=== PATIENT | female | born 1940 | race Caucasian/White ===

== ENCOUNTER 2017-04-10 13:56 | Outpatient (CLI) | payer MEDICARE | END 2017-04-10 13:57 | disposition home or self-care (01) | LOC: BICMAMMO 13:56 | PROVIDERS: ATTEND Internal Medicine Medical Oncology | DX: Z08 Encounter for follow-up examination after completed treatment for malignant neoplasm (principal); R92.1 Mammographic calcification found on diagnostic imaging of breast; Z85.3 Personal history of malignant neoplasm of breast | CPT/HCPCS: 77066; G0279; 77063; 77067 ==

== ENCOUNTER 2017-12-21 11:40 | Inpatient (IN) | payer MEDICARE ==
--- NOTE | 2017-12-21 13:18 | RAD ---
LEFT KNEE 4 VIEWS: History Sipped. Sever pain. COMPARISON: None. FINDINGS: There is a mildly comminuted transversely oriented fracture of the mid patella. There is distraction anteriorly approximately 1.4 cm. Large joint effusion. IMPRESSION: Mildly comminuted mid patellar fracture with 1.4 cm anterior distraction. POS: [facility]
[2017-12-21] MEDS ORDERED: Adacel (T-DAP) 0.5 ML VIAL ONE (14:02)
[2017-12-21] MEDS ORDERED: CEFAZOLIN 1 GM VIAL ONE (14:02)
[2017-12-21] MEDS ORDERED: PROPOFOL 200 MG/20 ML VIAL ONE (14:59)
[2017-12-21] MEDS ORDERED: Ondansetron PF 4 MG/2 ML Vial ONE (14:59)
[2017-12-21] MEDS ORDERED: Dexamethasone 20 MG/5 ML VIAL ONE (14:59)
[2017-12-21] MEDS ORDERED: Lidocaine 1% PF 5 ML VIAL ONE (14:59)
[2017-12-21] MEDS ORDERED: PHENYLEPHRINE-NS 100 MCG/ML 10 ML SYRINGE ONE (14:59)
[2017-12-21] MEDS ORDERED: CEFAZOLIN/Water 2 GM/20 ML SYRINGE SLOW IVP SCH (15:30)
--- NOTE | 2017-12-21 16:56 | CON ---
DATE OF CONSULTATION: 12/21/2017 CHIEF COMPLAINT: Left knee pain. HOSPITAL COURSE: Ms. Cleveland is a 77-year-old female who fell today. She lost her balance. She trip ped and landed hard on her left knee. She had a laceration of the anterior knee. She was unable to ambulate after this. She felt a crunch or pop in the knee. She knew she has broken a bone. The pat ient was taken to the emergency department where x-rays were obtained. They demonstrated a transvers e patellar fracture. Orthopedics was consulted. PAST MEDICAL HISTORY: The patient reports hypertension, otherwise she denies active medical problems . The patient has chronic kidney disease. PAST SURGICAL HISTORY: No recent surgeries. SOCIAL HISTORY: The patient denies tobacco, alcohol, or drug use. Her friend is at the bedside with her. REVIEW OF SYSTEMS: Positive for left knee pain, otherwise negative 10-point review of systems. SOCIAL HISTORY: The patient denies alcohol, tobacco or drug use. IMAGING DATA: X-rays of the left knee demonstrate a transverse patellar fracture with mild comminuti on and displacement. PHYSICAL EXAMINATION: VITAL SIGNS: Stable. The patient is afebrile, normotensive, 98% on room air. GENERAL: She is alert, sitting upright in no apparent distress. RESPIRATORY: Breathing comfortably. ABDOMEN: Soft, nontender, nondistended. CARDIOVASCULAR: Pulses palpable and regular. MUSCULOSKELETAL: The patient's left lower extremity has a small 1 cm laceration directly over the pa tella. There is some draining hematoma consistent with open fracture. There is a second small lacer ation more distal to the patella. She is unable to do a straight leg raise. She has pain with motio n and swelling of her knee. IMPRESSION: Left open patellar fracture in an elderly female. PLAN: At this point, the patient will need to go for surgery for open reduction and internal fixatio n of her patella. She will need irrigation and debridement of her open fracture. She will need intr avenous antibiotic treatment. She has already received Ancef. She will have pain control, DVT proph ylaxis and will need physical therapy to mobilize. We will keep her in the hospital overnight. All questions have been answered.
[2017-12-21] MEDS ORDERED: HYDROmorphone 2 MG/ML VIAL ONE (17:17)
[2017-12-21] MEDS ORDERED: Bupivacaine HCl 0.5%/Epinephrine 1:200,000/PF 30 ml Vial ONE (17:28)
[2017-12-21] MEDS ORDERED: Milk Of Magnesia 30 ML UDCUP PO PRN (18:12)
[2017-12-21] MEDS ORDERED: HYDROcodone/Acetaminophen 5/325 mg Tablet PO PRN (18:12)
[2017-12-21] MEDS ORDERED: Ondansetron PF 4 MG/2 ML Vial IV PRN (18:12)
[2017-12-21] MEDS ORDERED: Acetaminophen 325 MG TAB PO PRN (18:12)
[2017-12-21] MEDS ORDERED: traMADol HCl 50 MG TAB PO PRN (18:12)
[2017-12-21] MEDS ORDERED: Fentanyl 100 MCG/2 ML VIAL SLOW IVP PRN (18:12)
[2017-12-21] MEDS ORDERED: Promethazine HCl 25 MG/ML VIAL SLOW IVP PRN (18:13)
[2017-12-21] MEDS ORDERED: Promethazine HCl 25 MG/ML VIAL IM PRN (18:13)
[2017-12-21] MEDS ORDERED: Ondansetron HCl/PF 4 MG/2 ML Vial IVP PRN (18:13)
[2017-12-21] MEDS ORDERED: Communication Order-Pharmacy FS SCH (18:15)
[2017-12-21] MEDS ORDERED: Fentanyl 100 MCG/2 ML VIAL ONE ×5 (18:16→19:24)
--- NOTE | 2017-12-21 18:27 | RAD ---
LEFT KNEE TWO VIEWS: INDICATIONS: ORIF of the left patella. COMPARISON: Radiograph dated 12/21/2017. FINDINGS: There has been interval placement of a cerclage band, fixating the patient's left patella fracture. There is improved fracture alignment. Fracture reduction is near anatomic. IMPRESSION: Open reduction and internal fixation left patella. POS: [facility]
[2017-12-21] MEDS: CEFAZOLIN 2 GM/50 ML BAG IVPB SCH (21:20)
[2017-12-21] MEDS: Ketorolac Tromethamine 30 MG/ML VIAL IVP SCH (23:30)
--- NOTE | 2017-12-21 23:56 | OP ---
DATE OF OPERATION: 12/21/2017 PROCEDURES: 1. Open reduction and internal fixation of left patellar fracture. 2. Irrigation and debridement of open patellar fracture. PREOPERATIVE DIAGNOSIS: Left displaced patellar fracture, open. POSTOPERATIVE DIAGNOSIS: Left displaced patellar fracture, open. SURGEON: Devante Alvarenga MD ANESTHESIA: General plus local. IMPLANTS: Two 4.0 cannulated screws and cerclage wire was utilized. COMPLICATIONS: None. ESTIMATED BLOOD LOSS: 100 mL INDICATIONS: Ms. Cleveland is a 77-year-old female. She fell today. She fractured her left patella. She was indicated for open reduction and internal fixation as well as irrigation and debridement of t he open fracture. Risks have been reviewed in detail. She has elected to proceed with the operation . DESCRIPTION OF OPERATION: Ms. Cleveland was identified in the preoperative holding area. Her correct e xtremity was marked. She was carried to the operating room. She was positioned supine. General ane sthesia was induced. A multidisciplinary timeout was performed. The left lower extremity was preppe d and draped in sterile fashion. At this point, we began the procedure by extending the patient's traumatic anterior wounds. We worke d more deeply down to the subcutaneous tissues and exposed the underlying fracture. The patient had a transverse patellar fracture. We thoroughly irrigated with copious lavage. We performed an excisi onal debridement with a knife as well of the deep tissues. Once we had a thorough irrigation of the knee joint and the fracture, we proceeded with fixation. We reduced the fracture, holding it with a reduction clamp. We then passed two guidewires through the patella from distal to proximal. We over drilled the guidewires. We then placed two 4.0 cannulated screws across the fracture site. These we re well fixed. We then placed a cerclage wire through the screws and brought this over the top of th e patella in a [id number] pattern. This provided a tension band. We took x-ray images confirmi ng hardware placement and that there was no prominence. We accepted this. We thoroughly irrigated w ith copious lavage. We then closed with a #2 Vicryl suture and the retinaculum followed by 2-0 Vicry l suture and byron for the skin. A sterile dressing was applied and a knee immobilizer. The patie nt was taken to the recovery room.
[2017-12-22 05:14] VITALS: BMI 26.4
[2017-12-22] MEDS: CEFAZOLIN 2 GM/50 ML BAG IVPB SCH (05:42)
[2017-12-22] MEDS: Ketorolac Tromethamine 30 MG/ML VIAL IVP SCH ×2 (05:42→11:52)
[2017-12-22] MEDS ORDERED: Enoxaparin Sodium 40 MG/0.4 ML SYRINGE SC SCH (09:00)
[2017-12-22 16:22] VITALS: BP 122/59; TEMP 97.4
[2017-12-23] MEDS ORDERED: Prevnar 13-Val Conj/PF 0.5 ML SYRINGE IM ONE (09:00)
--- NOTE | 2017-12-23 12:28 | DIS ---
DATE OF ADMISSION: 12/21/2017 DATE OF DISCHARGE: 12/22/2017 PREOPERATIVE DIAGNOSIS: Patellar fracture. POSTOPERATIVE DIAGNOSIS: Patellar fracture. PROCEDURE: The patient underwent a patellar repair. HOSPITAL COURSE: Hospital stay was unremarkable. The patient was able to discharge on postop day #1 . DISCHARGE CONDITION: Good/stable. DISPOSITION: Home with family. FOLLOWUP: Followup would be in 10-14 days, sooner if there are problems or concerns. DISCHARGE MEDICATIONS: Given with usage instructions. Osei Roy PA-C, dictating for Devante Alvarenga M.D.
== END 2017-12-22 17:25 | disposition home or self-care (01) | DRG 517 ==
LOC: ERS 11:40 → SDC 16:46 → SURG B 19:27
PROVIDERS: ADMIT Orthopaedic Surgery; ATTEND Orthopaedic Surgery
PROC: 0QSF04Z Reposition Left Patella with Internal Fixation Device, Open Approach (ICD-10-PCS; principal; 2017-12-21)
DX: S82.032B Displaced transverse fracture of left patella, initial encounter for open fracture type I or II (principal); W01.0XXA Fall on same level from slipping, tripping and stumbling without subsequent striking against object, initial encounter; I10 Essential (primary) hypertension
CPT/HCPCS: 76001; 76700; 76770; 90471; 90715; 96365; C1713; C1769; G0390; G8978-GP-CK; G8979-GP-CI; J0131; J0670; J0690; J1100; J1170; J1650; J1885; J2001; J2405; J2704; J3010

== ENCOUNTER 2018-04-12 14:06 | Outpatient (CLI) | payer MEDICARE ==
--- NOTE | 2018-04-12 16:43 | BD ---
DEXA BONE DENSITY STUDY: History: Post-menopausal. Exam: DEXA Bone Density Lumbar Spine: BMD (g/cm2) L1 1.409 T-Score: 3.8 L2 1.420 T-Score: 3.6 L3 1.452 T-Score: 3.3 L4 1.371 T-Score: 2.8 L1-L4 1.411 T-Score: 3.3 Femoral Neck: 0.740 T-Score: -1.0 Total Femur: 0.906 T-Score: -0.3 Impression: Normal bone mineral density of the lumbar spine, left femoral neck. POS: [facility]
== END 2018-04-12 14:07 | disposition home or self-care (01) ==
LOC: BICMAMMO 14:06
PROVIDERS: ATTEND Obstetrics & Gynecology
DX: C50.612 Malignant neoplasm of axillary tail of left female breast (principal); M89.9 Disorder of bone, unspecified; R92.1 Mammographic calcification found on diagnostic imaging of breast; Z85.3 Personal history of malignant neoplasm of breast
CPT/HCPCS: 77066; 77080; G0279

== ENCOUNTER 2018-12-31 16:04 | Day surgery (SDC) | payer MEDICARE ==
[~2018-12-31 16:04] MED LIST: Dexamethasone 20 MG/5 ML VIAL ONE; Lidocaine 1% PF 5 ML VIAL ONE; Ondansetron PF 4 MG/2 ML Vial ONE; PHENYLEPHRINE-NS 100 MCG/ML 10 ML SYRINGE ONE; PROPOFOL 200 MG/20 ML VIAL ONE; ePHEDrine/0.9% NaCl/PF SYRINGE 50 mg/10 ml ONE
[2018-12-31] MEDS ORDERED: Cyclopentolate 1% Opth Drop 2 ML BOT ONE (16:38)
[2018-12-31] MEDS ORDERED: Phenylephrine 2.5% Ophth Soln 5 ML BOT ONE (16:38)
[2018-12-31] MEDS ORDERED: Fluorouracil 100 MG, Enoxaparin Sodium 25 MG, EPINEPHrine 0.3 MG in Ophthalmic Irrigati... IRR SCH (16:43)
[2018-12-31] MEDS ORDERED: Fentanyl 100 MCG/2 ML VIAL ONE (17:49)
--- NOTE | 2019-01-01 00:59 | OP ---
DATE OF PROCEDURE: 12/31/2018 PREOPERATIVE DIAGNOSIS: Retinal detachment, left eye. POSTOPERATIVE DIAGNOSIS: Retinal detachment, left eye. PROCEDURES PERFORMED: Pars plana vitrectomy, retinal detachment repair, left eye. ANESTHESIA: General endotracheal anesthesia. COMPLICATIONS: None. DESCRIPTION OF PROCEDURE: The patient was identified in the preoperative holding area. Appropriate informed consent for the planned surgical procedure on the left eye had been obtained. The patient was transported to the operative suite. Appropriate cardiopulmonary monitoring was established. Local anesthesia was obtained using retrobulbar modified Van Lint lid block using 50:50 mixture of 4% lidocaine, 0.75% bupivacaine. The patient was prepped and draped in usual sterile manner for ophthalmic surgery, left eye. Lid speculum placed in the left eye. A 25-gauge trocar was placed in the conjunctiva and sclera superotemporally, inferotemporally, and supranasally. Infusion line was placed inferotemporally. Light pipe and vitreous cutter were inserted into the eye. Core vitrectomy was performed. Posterior drained retinotomy was created along the supratemporal arcade. Complete air-fluid exchange was performed. Supratemporal laser was placed around the break at the 2 o'clock position; 28% sulfur hexafluoride gas was infused into the eye. Superior sclerotomy suture closed. Retrobulbar Kenalog and subconjunctival Ancef were placed. Antibiotic ointment placed. The eye was patched and shielded. The patient was taken to postoperative recovery unit in good condition having suffered no immediate perioperative complications. The patient was instructed to keep patch and shield on, position left side down. Followup appointment with Dr. Reyes. Job ID: [id number]
== END 2018-12-31 20:35 | disposition home or self-care (01) ==
LOC: SDC 16:04
PROVIDERS: ATTEND Ophthalmology Retina Specialist
PROC: 08T53ZZ Resection of Left Vitreous, Percutaneous Approach (ICD-10-PCS; principal; 2018-12-31)
DX: H33.002 Unspecified retinal detachment with retinal break, left eye (principal)
CPT/HCPCS: 67025; J0171; J1100; J1650; J2001; J2405; J2704; J3010; J9190

== ENCOUNTER 2019-05-04 13:41 | Outpatient (CLI) | payer MEDICARE, OTHER ==
--- NOTE | 2019-05-04 14:29 | MMO ---
Bilateral MAMMO Bilat Diag [facility]. CLINICAL HISTORY: Patient is 78 years old and is seen for diagnostic exam. The patient has no family history of breast cancer. 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 The patient has a history of left Lumpectomy in 2017 - malignant and left Excisional Biopsy in 2012 - benign. VIEWS: The views performed were: bilateral craniocaudal with tomosynthesis; bilateral mediolateral oblique with tomosynthesis; and bilateral mediolateral with tomosynthesis. FILMS COMPARED: The present examination has been compared to prior imaging studies performed at [facility] on 04/07/2016, 04/10/2016, 04/10/2017 and 04/12/2018. This study has been interpreted with the assistance of computer-aided detection. MAMMOGRAM FINDINGS: There are scattered fibroglandular densities. Benign calcifications are noted. There are no suspicious masses, suspicious calcifications, or new areas of architectural distortion. IMPRESSION: THERE IS NO MAMMOGRAPHIC EVIDENCE OF MALIGNANCY. A ROUTINE FOLLOW-UP MAMMOGRAM IN 1 YEAR IS RECOMMENDED. THE RESULTS OF THIS EXAM WERE SENT TO THE PATIENT. ACR BI-RADS Category 2 - Benign finding MAMMOGRAPHY NOTE: 1. A negative mammogram report should not delay a biopsy if a dominant of clinically suspicious mass is present. 2. Approximately 10% to 15% of breast cancers are not detected by mammography. 3. Adenosis and dense breasts may obscure an underlying neoplasm. Reported by: BILLY ALANIZ MD Electonically Signed: [id number]
== END 2019-05-04 13:42 | disposition home or self-care (01) ==
LOC: BICMAMMO 13:41
PROVIDERS: ATTEND Internal Medicine Medical Oncology
DX: C50.612 Malignant neoplasm of axillary tail of left female breast (principal)
CPT/HCPCS: 77066; G0279

== ENCOUNTER 2020-05-10 13:41 | Outpatient (CLI) | payer MEDICARE, OTHER | END 2020-05-10 13:42 | disposition home or self-care (01) | LOC: BICMAMMO 13:41 | PROVIDERS: ATTEND Internal Medicine Medical Oncology | DX: Z08 Encounter for follow-up examination after completed treatment for malignant neoplasm (principal); Z85.3 Personal history of malignant neoplasm of breast | CPT/HCPCS: 77066; G0279 ==

== ENCOUNTER 2022-02-05 12:17 | Outpatient (CLI) | payer MEDICARE, OTHER | END 2022-02-05 12:18 | disposition home or self-care (01) | LOC: BICCT 12:17 | PROVIDERS: ATTEND Internal Medicine Cardiovascular Disease | DX: I65.22 Occlusion and stenosis of left carotid artery (principal); E04.1 Nontoxic single thyroid nodule; M47.892 Other spondylosis, cervical region; M48.02 Spinal stenosis, cervical region | CPT/HCPCS: 70498; 82565 ==

== ENCOUNTER 2022-03-31 13:36 | Outpatient (CLI) | payer MEDICARE, OTHER ==
[2022-03-31 15:30] LABS: Hemoglobin 13.7 g/dL (12.0-15.5); Mean Corpuscular HGB CONC 33.9 g/dL (32.0-36.0); Mean Corpuscular Hemoglobin 34.1 pg (27.0-33.0); Mean Corpuscular Volume 100.5 fl (81.6-98.3); Mean Platelet Volume 9.8 fl (7.4-10.4); Platelet Count 209 10x3/uL (150-450); RBC Distribution Width 11.8 % (11.5-14.5); Red Blood Cell (RBC) Count 4.02 10x6/uL (3.90-5.03); White Blood Cell (WBC) Count 6.6 10x3/uL (3.5-10.5)
[2022-03-31 15:51] LABS: Anion Gap 18 mmol/L (10-20); BUN (Urea Nitrogen) 36 mg/dL (9.8-20.1); Calc. Creatinine Clearance 0 mL/min (70-130); Calcium 9.7 mg/dL (7.8-10.44); Carbon Dioxide 21 mmol/L (23-31); Chloride 102 mmol/L (98-107); Estimated GFR 44; Glucose 97 mg/dL (83-110); Sodium 137 mmol/L (136-145)
[2022-03-31 16:00] LABS: Potassium 4.3 mmol/L (3.5-5.1)
== END 2022-03-31 13:37 | disposition home or self-care (01) ==
LOC: LABBT 13:36
PROVIDERS: ATTEND Thoracic Surgery (Cardiothoracic Vascular Surgery)
DX: Z01.812 Encounter for preprocedural laboratory examination (principal); I65.22 Occlusion and stenosis of left carotid artery
CPT/HCPCS: 80048; 85027

== ENCOUNTER 2022-03-31 14:00 | Inpatient (IN) | payer MEDICARE, OTHER ==
[2022-04-01 08:57] VITALS: BMI 27.7
[2022-04-02] MEDS ORDERED: Bupivacaine HCl 0.5%/Epinephrine 1:200,000/PF 30 ml Vial ONE (06:17)
[2022-04-02] MEDS ORDERED: Heparin 5,000 UNITS/ML VIAL ONE (06:17)
[2022-04-02] MEDS ORDERED: Protamine Sulfate 50 MG/5 ML VIAL ONE (06:17)
[2022-04-02] MEDS ORDERED: Fentanyl 250 MCG/5 ML VIAL ONE (06:28)
[2022-04-02] MEDS ORDERED: niCARdipine 25 MG/10 ML VIAL ONE (06:29)
[2022-04-02] MEDS ORDERED: Phenylephrine 10 MG/ML VIAL ONE (06:29)
[2022-04-02] MEDS ORDERED: Sodium Chloride 0.9% 100 ML ONE (06:43)
[2022-04-02] MEDS ORDERED: CEFAZOLIN 2 GM VIAL ONE (06:43)
[2022-04-02] MEDS ORDERED: Lidocaine 1% MPF 2 ML VIAL ONE (06:45)
[2022-04-02] MEDS ORDERED: Lidocaine 1% PF 5 ML VIAL ONE (07:05)
[2022-04-02] MEDS ORDERED: PROPOFOL 200 MG/20 ML VIAL ONE (07:05)
[2022-04-02] MEDS ORDERED: Rocuronium Bromide 10 MG/ML (10ML VIAL) ONE (07:05)
[2022-04-02] MEDS ORDERED: NEOSTIGMINE 3 MG/3 ML SYR 3 MG/3 ML SYRINGE ONE (07:05)
[2022-04-02] MEDS ORDERED: Glycopyrrolate 0.2 MG/ML 5 ML SYRINGE ONE (07:05)
[2022-04-02] MEDS ORDERED: Dexamethasone 20 MG/5 ML VIAL ONE (07:05)
[2022-04-02] MEDS ORDERED: Ondansetron PF 4 MG/2 ML Vial ONE ×2 (07:05→08:35)
[2022-04-02 07:19] LABS: SARS-CoV-2 NAA Rapid Test Not Detected (NotDetected)
[2022-04-02] MEDS ORDERED: Promethazine HCl 25 MG/ML VIAL IM PRN ×2 (08:24→08:55)
[2022-04-02] MEDS ORDERED: Ondansetron HCl/PF 4 MG/2 ML Vial IVP PRN (08:24)
[2022-04-02] MEDS ORDERED: Fentanyl 100 MCG/2 ML VIAL ONE (08:35)
[2022-04-02] MEDS ORDERED: NOREPINEPHRINE 8 MG/250 ML-D5W 250 ML IVPB PRN (08:55)
[2022-04-02] MEDS ORDERED: niCARdipine 25 MG in Sodium Chloride 0.9% 250 ML 250 ML IVPB PRN (08:55)
[2022-04-02] MEDS ORDERED: traMADol HCl 50 MG TAB PO PRN ×2 (08:55)
[2022-04-02] MEDS ORDERED: Ondansetron PF 4 MG/2 ML Vial IVP PRN (08:55)
[2022-04-02] MEDS ORDERED: Ipratropium/Albuterol 3 ML NEB NEB PRN (08:55)
[2022-04-02] MEDS ORDERED: Non-Formulary Item 1 EACH (Tamoxifen Citrate [Tamoxifen Citrate] 20 MG Tablet) PO SCH (09:00)
[2022-04-02] MEDS: Acetaminophen 325 MG TAB PO PRN ×3 (11:17→23:37)
[2022-04-02] MEDS: Sodium Chloride 0.9% 1,000 ML IV SCH ×2 (11:18→20:09)
[2022-04-02] MEDS: Aspirin Chewable 81 MG TAB PO SCH (11:19)
[2022-04-02] MEDS: Levothyroxine Sodium 50 MCG TAB PO SCH (11:19)
[2022-04-02] MEDS: Ipratropium/Albuterol 3 ML NEB NEB SCH ×3 (14:20→23:07)
[2022-04-02] MEDS: CEFAZOLIN 2 GM in Sodium Chloride 0.9% 100 ML IVPB SCH ×2 (16:04→21:15)
[2022-04-02] MEDS ORDERED: Simvastatin 40 MG TAB PO SCH (21:00)
[2022-04-02] MEDS ORDERED: Atorvastatin Calcium 20 MG TAB PO SCH (21:00)
[2022-04-03] MEDS: CEFAZOLIN 2 GM in Sodium Chloride 0.9% 100 ML IVPB SCH (05:09)
[2022-04-03] MEDS: Sodium Chloride 0.9% 1,000 ML IV SCH (05:09)
[2022-04-03] MEDS: Aspirin Chewable 81 MG TAB PO SCH (08:32)
[2022-04-03] MEDS: Levothyroxine Sodium 50 MCG TAB PO SCH (08:35)
[2022-04-03 08:52] VITALS: TEMP 98.4
[2022-04-03] MEDS ORDERED: Tamoxifen 10 MG TAB PO SCH (09:00)
[2022-04-05] MEDS ORDERED: FLU VACC QS2022-23(65YR UP)/PF 240 MCG/0.7 ML SYRINGE IM ONE (15:45)
== END 2022-04-03 09:45 | disposition home or self-care (01) | DRG 39 ==
LOC: SURG A 04-02 05:52 → CCU 04-02 10:22 → EDSTATUS 04-02 14:00
PROVIDERS: ADMIT Thoracic Surgery (Cardiothoracic Vascular Surgery); ATTEND Thoracic Surgery (Cardiothoracic Vascular Surgery)
PROC: 03CJ0ZZ Extirpation of Matter from Left Common Carotid Artery, Open Approach (ICD-10-PCS; principal; 2022-04-02)
PROC: 03UJ0KZ Supplement Left Common Carotid Artery with Nonautologous Tissue Substitute, Open Approach (ICD-10-PCS; 2022-04-02)
DX: I65.22 Occlusion and stenosis of left carotid artery (principal); M19.90 Unspecified osteoarthritis, unspecified site; I10 Essential (primary) hypertension; M81.0 Age-related osteoporosis without current pathological fracture; Z20.822 Contact with and (suspected) exposure to COVID-19; Z90.49 Acquired absence of other specified parts of digestive tract; Z98.890 Other specified postprocedural states; Z79.899 Other long term (current) drug therapy
CPT/HCPCS: 94640; C1768; J1100; J1642; J1644; J2370; J2405; J2704; J2720; J3010; J3490; J7050; J7620; U0002

== ENCOUNTER 2022-06-09 10:53 | Outpatient (CLI) | payer MEDICARE | END 2022-06-09 10:54 | disposition home or self-care (01) | LOC: BICMAMMO 10:53 | PROVIDERS: ATTEND Internal Medicine Medical Oncology | DX: Z12.31 Encounter for screening mammogram for malignant neoplasm of breast (principal) | CPT/HCPCS: 77063; 77067 ==

== ENCOUNTER 2022-09-10 13:48 | Outpatient (CLI) | payer MEDICARE | END 2022-09-10 13:49 | disposition home or self-care (01) | LOC: BICULT 13:48 | PROVIDERS: ATTEND Student in an Organized Health Care Education/Training Program | DX: E04.1 Nontoxic single thyroid nodule (principal) | CPT/HCPCS: 76536 ==

== ENCOUNTER 2023-01-21 13:50 | Outpatient (CLI) | payer MEDICARE | END 2023-01-21 13:51 | disposition home or self-care (01) | LOC: BICRAD 13:50 | PROVIDERS: ATTEND Family Medicine | DX: D72.829 Elevated white blood cell count, unspecified (principal) | CPT/HCPCS: 71046 ==

== ENCOUNTER 2023-07-09 13:21 | Outpatient (CLI) | payer MEDICARE, OTHER | END 2023-07-09 13:22 | disposition home or self-care (01) | LOC: BICMAMMO 13:21 | PROVIDERS: ATTEND Family Medicine | DX: Z12.31 Encounter for screening mammogram for malignant neoplasm of breast (principal); Z85.3 Personal history of malignant neoplasm of breast; Z91.89 Other specified personal risk factors, not elsewhere classified; Z98.890 Other specified postprocedural states | CPT/HCPCS: 77063; 77067 ==

== ENCOUNTER 2023-09-02 15:17 | Outpatient (CLI) | payer MEDICARE, OTHER | END 2023-09-02 15:18 | disposition home or self-care (01) | LOC: BICULT 15:17 | PROVIDERS: ATTEND Student in an Organized Health Care Education/Training Program | DX: E04.1 Nontoxic single thyroid nodule (principal) | CPT/HCPCS: 76536 ==

== ENCOUNTER 2024-02-18 15:42 | Outpatient (CLI) | payer MEDICARE, OTHER | END 2024-02-18 15:43 | disposition home or self-care (01) | LOC: BICULT 15:42 | PROVIDERS: ATTEND Family Medicine | DX: M79.89 Other specified soft tissue disorders (principal) ==

== ENCOUNTER 2024-10-13 13:09 | Outpatient (CLI) | payer MEDICARE, OTHER | END 2024-10-13 13:10 | disposition home or self-care (01) | LOC: BICULT 13:09 | PROVIDERS: ATTEND Otolaryngology | DX: E04.2 Nontoxic multinodular goiter (principal) | CPT/HCPCS: 76536 ==

== ENCOUNTER 2024-10-24 16:49 | Emergency (ER) | payer MEDICARE, OTHER ==
[~2024-10-24 16:49] MED LIST changes: -Dexamethasone 20 MG/5 ML VIAL ONE; +Iopamidol-370 76% 500 ML MDV (1 ML CHARGE) ONE; -Lidocaine 1% PF 5 ML VIAL ONE; -Ondansetron PF 4 MG/2 ML Vial ONE; -PHENYLEPHRINE-NS 100 MCG/ML 10 ML SYRINGE ONE; -PROPOFOL 200 MG/20 ML VIAL ONE; -ePHEDrine/0.9% NaCl/PF SYRINGE 50 mg/10 ml ONE
[2024-10-24 19:38] LABS: #Basophils 0.04 10x3/uL (0.0-0.2); #Eosinophils 0.11 10x3/uL (0.0-0.7); #Monocytes 1.06 10x3/uL (0.11-0.59); #Neutrophils 6.48 10x3/uL (1.40-6.50); %Basophils 0.4 % (0.0-1.0); %Eosinophils 1.1 % (0.0-10.0); %Lymphocytes 20.7 % (21.0-51.0); %Monocytes 10.9 % (0.0-10.0); %Neutrophils 66.6 % (42.0-75.0); Hematocrit 40.3 % (36.0-47.0); Hemoglobin 13.4 g/dL (12.0-16.0); Mean Corpuscular Hemoglobin 32.8 pg (27.0-31.0); Mean Corpuscular Volume 98.5 fL (78.0-98.0); Platelet Count 200 10x3/uL (130-400); Red Blood Cell (RBC) Count 4.09 mill/uL (4.20-5.40); White Blood Cell (WBC) Count 9.74 10x3/uL (4.8-10.8)
[2024-10-24 19:56] LABS: ALT (SGPT) 23 U/L (Less than 34); AST (SGOT) 39 U/L (11-34); Albumin 4.0 g/dL (3.1-4.5); Alkaline Phosphatase 81 U/L (40-110); Anion Gap 14 mmol/L (10-20); BUN (Urea Nitrogen) 29 mg/dL (9.8-20.1); Bilirubin, Total 0.4 mg/dL (0.3-1.2); Calc. Creatinine Clearance 0 mL/min (70-130); Calcium 10.2 mg/dL (7.8-10.44); Carbon Dioxide 23 mmol/L (23-31); Chloride 100 mmol/L (98-107); Globulin 3.2 g/dL (2.4-3.5); Glucose 102 mg/dL (83-110); Potassium 4.0 mmol/L (3.5-5.1); Sodium 133 mmol/L (136-145)
[2024-10-24 23:18] LABS: Bacteria/HPF None Seen HPF (None Seen); CAUTI Indications for Culture Alt mental st,lethar; Glucose, Urine (Dipstick) Normal (Negative); Leukocyte 25 Leu/uL (Negative); Protein, Urine (Dipstick) Negative (Neg-Trace); Specific Gravity, Urine 1.011 (1.002-1.036); WBC/HPF 0-3 HPF (0-3)
[2024-10-24 23:25] LABS: Urine Culture Reflex No No
== END 2024-10-25 00:05 | disposition home or self-care (01) ==
LOC: ERS 16:49
DX: N95.0 Postmenopausal bleeding (principal); N85.8 Other specified noninflammatory disorders of uterus; I10 Essential (primary) hypertension
CPT/HCPCS: 36415; 74177; 80053; 81001; 85025; 86850; 86900; 86901; Q9967

== ENCOUNTER 2024-11-02 13:48 | Outpatient (CLI) | payer MEDICARE | END 2024-11-02 13:49 | disposition home or self-care (01) | LOC: BICMAMMO 13:48 | PROVIDERS: ATTEND Internal Medicine | DX: M81.0 Age-related osteoporosis without current pathological fracture (principal); C44.591 Other specified malignant neoplasm of skin of breast; M85.852 Other specified disorders of bone density and structure, left thigh; Z79.818 Long term (current) use of other agents affecting estrogen receptors and estrogen levels; Z79.899 Other long term (current) drug therapy | CPT/HCPCS: 77080 ==

== ENCOUNTER 2024-12-15 16:49 | Inpatient (IN) | payer MEDICARE ==
[2024-12-15 17:06] LABS: #Basophils 0.05 10x3/uL (0.0-0.2); #Eosinophils Less than 0.03 10x3/uL (0.0-0.7); #Monocytes 0.56 10x3/uL (0.11-0.59); #Neutrophils 9.34 10x3/uL (1.40-6.50); %Basophils 0.5 % (0.0-1.0); %Eosinophils 0.1 % (0.0-10.0); %Lymphocytes 7.7 % (21.0-51.0); %Monocytes 5.1 % (0.0-10.0); %Neutrophils 85.1 % (42.0-75.0); Hematocrit 36.4 % (36.0-47.0); Hemoglobin 12.1 g/dL (12.0-16.0); Mean Corpuscular Hemoglobin 32.6 pg (27.0-31.0); Mean Corpuscular Volume 98.1 fL (78.0-98.0); Platelet Count 200 10x3/uL (130-400); Red Blood Cell (RBC) Count 3.71 mill/uL (4.20-5.40); White Blood Cell (WBC) Count 10.98 10x3/uL (4.8-10.8)
[2024-12-15] MEDS ORDERED: dilTIAZem 25 MG/5 ML VIAL ONE (17:13)
[2024-12-15 17:22] LABS: Acetaminophen Less than 10 mcg/mL (Less than 10); Salicylate Less than 8.0 mg/dL (Less than 8.0)
[2024-12-15 17:23] LABS: ALT (SGPT) 28 U/L (Less than 34); AST (SGOT) 35 U/L (11-34); Albumin 3.8 g/dL (3.1-4.5); Alkaline Phosphatase 78 U/L (40-110); Anion Gap 15 mmol/L (10-20); BUN (Urea Nitrogen) 25 mg/dL (9.8-20.1); Bilirubin, Total 0.7 mg/dL (0.3-1.2); Calc. Creatinine Clearance 0 mL/min (70-130); Calcium 9.5 mg/dL (7.8-10.44); Carbon Dioxide 24 mmol/L (23-31); Chloride 99 mmol/L (98-107); Globulin 3.0 g/dL (2.4-3.5); Glucose 135 mg/dL (83-110); Potassium 3.9 mmol/L (3.5-5.1); Sodium 134 mmol/L (136-145)
[2024-12-15 18:29] LABS: CK (CPK) 51 U/L (29-168); Lipase 31 U/L (8-78)
[2024-12-15 18:30] LABS: Cocaine Metabolite Screen Negative (Negative); THC/Cannabinoid Screen Negative (Negative); Tricyclic Screen Negative (Negative)
[2024-12-15 18:42] LABS: Bacteria/HPF None Seen HPF (None Seen); CAUTI Indications for Culture Alt mental st,lethar; Glucose, Urine (Dipstick) 50 mg/dL (Negative); Leukocyte Negative Leu/uL (Negative); Protein, Urine (Dipstick) 20 mg/dL (Neg-Trace); RBC/HPF 0-3 HPF (0-3); Specific Gravity, Urine 1.012 (1.002-1.036); WBC/HPF 0-3 HPF (0-3)
[2024-12-15 18:43] LABS: Urine Culture Reflex No No
[2024-12-15 19:14] LABS: Actual Bicarbonate (HCO3a) 22.8 mEq/L (22-28); Analyzer IN Cardio ER; Base Excess (BEa) -2.2 mEq/L (-2.0 to +3.0); CO2 Tension 40.0 mmHg (35.0-45.0); Calcium, Ionized (arterial) 1.14 mmol/L (1.12-1.30); Hematocrit-ABG 39 % (36.0-47.0); Hemoglobin (Hb) 13.4 g/dL (12.0-16.0); O2 Tension (PaO2), arterial 80.5 mmHg (> 60.0); Potassium - ABG Lab 3.75 mmol/L (3.70-5.30); pH, Arterial 7.374 (7.35-7.45)
[2024-12-15] MEDS ORDERED: Ondansetron PF 4 MG/2 ML Vial IVP PRN (20:09)
[2024-12-15 23:23] VITALS: BMI 28.4
[2024-12-15] MEDS: Pantoprazole 40 MG VIAL IVP SCH (23:35)
[2024-12-16] MEDS: FLU (Fluad Triv) 25-26 (65UP)PF 45 MCG/0.5 ML Syringe IM ONE (04:59)
[2024-12-16 05:07] LABS: #Basophils 0.03 10x3/uL (0.0-0.2); #Eosinophils Less than 0.03 10x3/uL (0.0-0.7); #Monocytes 0.12 10x3/uL (0.11-0.59); #Neutrophils 11.23 10x3/uL (1.40-6.50); %Basophils 0.2 % (0.0-1.0); %Eosinophils 0.0 % (0.0-10.0); %Lymphocytes 4.1 % (21.0-51.0); %Monocytes 1.0 % (0.0-10.0); %Neutrophils 92.8 % (42.0-75.0); Hematocrit 38.6 % (36.0-47.0); Hemoglobin 13.2 g/dL (12.0-16.0); Mean Corpuscular Hemoglobin 32.7 pg (27.0-31.0); Mean Corpuscular Volume 95.5 fL (78.0-98.0); Platelet Count 209 10x3/uL (130-400); Red Blood Cell (RBC) Count 4.04 mill/uL (4.20-5.40); White Blood Cell (WBC) Count 12.11 10x3/uL (4.8-10.8)
[2024-12-16 05:08] LABS: Anion Gap 18 mmol/L (10-20); BUN (Urea Nitrogen) 19 mg/dL (9.8-20.1); CK (CPK) 96 U/L (29-168); Calc. Creatinine Clearance 74 mL/min (70-130); Calcium 9.0 mg/dL (7.8-10.44); Carbon Dioxide 22 mmol/L (23-31); Chloride 97 mmol/L (98-107); Glucose 161 mg/dL (83-110); Potassium 3.4 mmol/L (3.5-5.1); Sodium 134 mmol/L (136-145)
[2024-12-16] MEDS: Enoxaparin 40 MG (0.4 mL) SYRINGE SC SCH (10:37)
[2024-12-16] MEDS: Pantoprazole 40 MG VIAL IVP SCH (10:38)
[2024-12-16] MEDS ORDERED: PEGFILGRASTIM-JMDB 6 MG/0.6 ML SYRINGE SQ SCH (10:45)
[2024-12-16] MEDS: Potassium Chloride 10 MEQ in Premix 1 BAG IVPB SCH (12:04)
[2024-12-16] MEDS: PEGFILGRASTIM-PBBK 6 MG/0.6 ML SYRINGE SQ SCH (23:00)
[2024-12-17 04:13] LABS: Hematocrit 32.0 % (36.0-47.0); Hemoglobin 11.2 g/dL (12.0-16.0); Mean Corpuscular Hemoglobin 33.1 pg (27.0-31.0); Mean Corpuscular Volume 94.7 fL (78.0-98.0); Platelet Count 186 10x3/uL (130-400); Red Blood Cell (RBC) Count 3.38 mill/uL (4.20-5.40); White Blood Cell (WBC) Count 25.58 10x3/uL (4.8-10.8)
[2024-12-17 04:29] LABS: Anion Gap 16 mmol/L (10-20); BUN (Urea Nitrogen) 19 mg/dL (9.8-20.1); Calc. Creatinine Clearance 65 mL/min (70-130); Calcium 8.3 mg/dL (7.8-10.44); Carbon Dioxide 22 mmol/L (23-31); Chloride 101 mmol/L (98-107); Glucose 119 mg/dL (83-110); Potassium 3.5 mmol/L (3.5-5.1); Sodium 135 mmol/L (136-145)
[2024-12-17 04:58] LABS: Platelet Adequacy Comment Platelets Normal; RBC Morphology Within Normal Limits; Smudge Cells 2.9 %
[2024-12-17 11:27] LABS: Bacteria/HPF None Seen HPF (None Seen); CAUTI Indications for Culture Acute Hematuria; Glucose, Urine (Dipstick) Normal (Negative); Leukocyte 75 Leu/uL (Negative); Protein, Urine (Dipstick) 50 mg/dL (Neg-Trace); RBC/HPF Greater than 50 HPF (0-3); Specific Gravity, Urine 1.012 (1.002-1.036)
[2024-12-17 11:28] LABS: Urine Culture Reflex No No
[2024-12-18] MEDS: HYDROcodone/Acetaminophen 7.5/325 mg Tablet PO PRN (00:33)
[2024-12-18 06:01] LABS: Hematocrit 34.0 % (36.0-47.0); Hemoglobin 12.2 g/dL (12.0-16.0); Mean Corpuscular Hemoglobin 34.2 pg (27.0-31.0); Mean Corpuscular Volume 95.2 fL (78.0-98.0); Platelet Count 115 10x3/uL (130-400); Red Blood Cell (RBC) Count 3.57 mill/uL (4.20-5.40); White Blood Cell (WBC) Count 27.86 10x3/uL (4.8-10.8)
[2024-12-18 06:17] LABS: Anion Gap 14 mmol/L (10-20); BUN (Urea Nitrogen) 13 mg/dL (9.8-20.1); Calc. Creatinine Clearance 84 mL/min (70-130); Calcium 7.6 mg/dL (7.8-10.44); Carbon Dioxide 21 mmol/L (23-31); Chloride 96 mmol/L (98-107); Glucose 121 mg/dL (83-110); Potassium 3.3 mmol/L (3.5-5.1); Sodium 128 mmol/L (136-145)
[2024-12-18 06:22] LABS: Platelet Adequacy Comment Platelets Decreased; RBC Morphology Within Normal Limits; Smudge Cells 1.9 %
[2024-12-18] MEDS: cefTRIAXone\\ROCEPHIN 1 GM in Sodium Chloride 0.9% 100 ML IVPB SCH (09:50)
[2024-12-18] MEDS: Potassium Chloride 10 MEQ in Premix 1 BAG IVPB SCH (09:51)
[2024-12-18] MEDS ORDERED: Pantoprazole 40 MG DR.TAB PO PRN (14:36)
[2024-12-19] MEDS: Verapamil 180 MG ER.TAB PO SCH (08:45)
[2024-12-19] MEDS: Allopurinol 100 MG TAB PO SCH (08:45)
[2024-12-19] MEDS: Calcium Carbonate 500 MG ChewTAB PO SCH (08:45)
[2024-12-19 14:06] LABS: Anion Gap 10 mmol/L (10-20); BUN (Urea Nitrogen) 13 mg/dL (9.8-20.1); Calc. Creatinine Clearance 84 mL/min (70-130); Calcium 7.6 mg/dL (7.8-10.44); Carbon Dioxide 25 mmol/L (23-31); Chloride 102 mmol/L (98-107); Glucose 108 mg/dL (83-110); Potassium 4.0 mmol/L (3.5-5.1); Sodium 133 mmol/L (136-145)
[2024-12-19] MEDS: BIOTIN 5000 MCG PO SCH (16:16)
[2024-12-20 09:49] LABS: Hematocrit 30.4 % (36.0-47.0); Hemoglobin 10.1 g/dL (12.0-16.0); Mean Corpuscular Hemoglobin 33.4 pg (27.0-31.0); Mean Corpuscular Volume 100.7 fL (78.0-98.0); Platelet Count 79 10x3/uL (130-400); Red Blood Cell (RBC) Count 3.02 mill/uL (4.20-5.40); White Blood Cell (WBC) Count 6.05 10x3/uL (4.8-10.8)
[2024-12-20 09:54] LABS: Anion Gap 13 mmol/L (10-20); BUN (Urea Nitrogen) 13 mg/dL (9.8-20.1); Calc. Creatinine Clearance 85 mL/min (70-130); Calcium 8.0 mg/dL (7.8-10.44); Carbon Dioxide 21 mmol/L (23-31); Chloride 102 mmol/L (98-107); Glucose 117 mg/dL (83-110); Potassium 3.6 mmol/L (3.5-5.1); Sodium 132 mmol/L (136-145)
[2024-12-20 10:27] LABS: Platelet Adequacy Comment Platelets Normal; Polychromasia SLIGHT = 2-3 cells HPF (0-2); Smudge Cells 2.8 %
[2024-12-20 19:53] VITALS: BP 146/80; TEMP 98.4
[2024-12-21] MEDS ORDERED: Pantoprazole 40 MG DR.TAB PO SCH (09:00)
== END 2024-12-20 20:02 | DRG 884 ==
LOC: ERS 16:49 → 2SE 20:09 → OBSVTOIN 12-16 10:12 → MSONC 12-17 12:34
PROVIDERS: ADMIT Student in an Organized Health Care Education/Training Program; ATTEND Internal Medicine
PROC: 3E03329 Introduction of Other Anti-infective into Peripheral Vein, Percutaneous Approach (ICD-10-PCS; principal; 2024-12-15)
PROC: 3E0234Z Introduction of Serum, Toxoid and Vaccine into Muscle, Percutaneous Approach (ICD-10-PCS; 2024-12-15)
PROC: 4A033R1 Measurement of Arterial Saturation, Peripheral, Percutaneous Approach (ICD-10-PCS; 2024-12-15)
DX: R40.4 Transient alteration of awareness (principal); G93.41 Metabolic encephalopathy; E87.1 Hypo-osmolality and hyponatremia; N39.0 Urinary tract infection, site not specified; R40.0 Somnolence; I10 Essential (primary) hypertension; E03.9 Hypothyroidism, unspecified; K21.9 Gastro-esophageal reflux disease without esophagitis; N19 Unspecified kidney failure; E87.6 Hypokalemia; I16.0 Hypertensive urgency; Z91.013 Allergy to seafood; Z85.3 Personal history of malignant neoplasm of breast; Z98.890 Other specified postprocedural states; Z79.899 Other long term (current) drug therapy; Z79.890 Hormone replacement therapy; C53.8 Malignant neoplasm of overlapping sites of cervix uteri; C54.1 Malignant neoplasm of endometrium; C44.591 Other specified malignant neoplasm of skin of breast
CPT/HCPCS: 36415; 36416; 51701; 51798; 70450; 71045; 80048; 80053; 80306; 80307; 81001; 82140; 82550; 82728; 82805; 83540; 83550; 83605; 83690; 84443; 85025; 86304; 87086; 87324; 87449; 93005; 96361; 96374; 96375; G0378; J0696; J1642; J1650; J2060; J2310; J2470; J3480; J7030; J7042; Q5130

== ENCOUNTER 2025-01-05 14:20 | Outpatient (CLI) | payer MEDICARE, OTHER ==
[~2025-01-05 14:20] MED LIST changes: +Iopamidol 370 76% 100 ML VIAL ONE; -Iopamidol-370 76% 500 ML MDV (1 ML CHARGE) ONE
== END 2025-01-05 14:21 | disposition home or self-care (01) ==
LOC: CT 14:20
PROVIDERS: ATTEND Internal Medicine
DX: Z51.11 Encounter for antineoplastic chemotherapy (principal); C53.8 Malignant neoplasm of overlapping sites of cervix uteri; C54.1 Malignant neoplasm of endometrium; C50.612 Malignant neoplasm of axillary tail of left female breast; Z79.818 Long term (current) use of other agents affecting estrogen receptors and estrogen levels; Z79.899 Other long term (current) drug therapy; N85.8 Other specified noninflammatory disorders of uterus; R93.2 Abnormal findings on diagnostic imaging of liver and biliary tract
CPT/HCPCS: 71260; 74177; Q9967